=== PATIENT | male | born 1975 | race Caucasian/White ===

== ENCOUNTER 2020-06-26 19:51 | Emergency (ER) | payer OTHER ==
[2020-06-26 20:21] VITALS: BP 145/92
[2020-06-26] MEDS ORDERED: KETOROLAC TROMETHAMINE 60 MG/2 ML SDV IM ONE (21:41)
--- NOTE | 2020-06-26 21:42 | ER Document Report ---
HPI - HPI Patient complains to provider of: Low back pain Time Seen by Provider: 06/26/20 21:29 Pain Level: 3 Notes: 44-year-old male to the emergency department with complaints of low back pain that began after his dog pulled him down 2 days ago. He states that he was walking the dog when the dog lunged. He states he fell down onto his back. Denies any bladder bowel incontinence, saddle paresthesia, radiculopathy. 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 He thinks that this is aggravated it. He states he walks with a cane because he has bad knees. He denies any fevers, chills, IV drug abuse. He has taken [id number] pain medicine for it but has not helped. - ROS Systems Reviewed and Negative: No All other systems reviewed and negative - CONSTITUTIONAL Constitutional: DENIES: Fever, Chills - EENT EENT: DENIES: Sore Throat, Ear Pain, Congestion - NEURO Neurology: DENIES: Headache - CARDIOVASCULAR Cardiovascular: DENIES: Chest pain - RESPIRATORY Respiratory: DENIES: Trouble Breathing, Coughing - GASTROINTESTINAL Gastrointestinal: DENIES: Abdominal Pain, Nausea, Patient vomiting - MUSCULOSKELETAL Musculoskeletal: REPORTS: Back Pain - DERM Skin Color: Normal Skin Problems: None Past Medical History - General Information source: Patient - Social History Smoking Status: Current Every Day Smoker Frequency of alcohol use: None Drug Abuse: None Family History: Reviewed & Not Pertinent Vertical Provider Document - CONSTITUTIONAL Agree With Documented VS: Yes General Appearance: WD/WN - HEENT HEENT: Atraumatic, Normocephalic, PERRLA - NECK Neck: Normal Inspection, Supple - RESPIRATORY Respiratory: Breath Sounds Normal, No Respiratory Distress. negative: Rales, Rhonchi, Wheezing - CARDIOVASCULAR Cardiovascular: Regular Rate, Regular Rhythm, No Murmur - GI/ABDOMEN Gastrointestinal: Abdomen Soft, Abdomen Non-Tender - BACK Back: negative: CVA Tenderness-Right, CVA Tenderness-Left Notes: There is midline lumbar back pain with no step-off and no deformity. Negative straight leg raise bilaterally. No tenderness to palpation over the midline cervical, thoracic midline back. There is noted mild spasm of the bilateral lumbar paraspinal muscles. - MUSCULOSKELETAL/EXTREMETIES Musculoskeletal/Extremeties: NANCY HA - NEURO Level of Consciousness: Awake, Alert, Appropriate Motor/Sensory: No Motor Deficit, No Sensory Deficit - DERM Integumentary: Warm, Dry Course - Re-evaluation Re-evalutation: Impression: Fall, lumbar strain. X-rays are reassuring. Patient feeling better after medicines here in the emergency department. Will discharge home. Follow- up with orthopedist. Patient agrees with the plan. Encouraged to return if any worsening symptoms. - Vital Signs Vital signs: Temp Pulse Resp BP Pulse Ox 97.8 F 72 16 145/92 H 98 06/26/20 20:19 06/26/20 20:19 06/26/20 20:19 06/26/20 20:19 06/26/20 20:19 Discharge - Discharge Clinical Impression: Fall Qualifiers: Encounter type: initial encounter Qualified Code(s): W19.XXXA - Unspecified fall, initial encounter Thoracic myofascial strain Qualifiers: Encounter type: initial encounter Qualified Code(s): S29.019A - Strain of muscle and tendon of unspecified wall of thorax, initial encounter Lumbar strain Qualifiers: Encounter type: initial encounter Qualified Code(s): S39.012A - Strain of muscle, fascia and tendon of lower back, initial encounter Condition: Stable Disposition: HOME, SELF-CARE Instructions: Low Back Pain ([facility]), Muscle Strain ([facility]) Additional Instructions: Take medicines as prescribed. Your x-rays did not show any fractures. 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 Take medicines as prescribed. [facility] No lifting greater than 10 pounds for the next 5 days. Prescriptions: Cyclobenzaprine HCl [Flexeril 10 mg Tablet] 10 mg PO TID #21 tablet Lidocaine [Lidoderm 5% (700 mg) Transdermal Patch] 1 patch TP DAILY #30 adh..patch Forms: Special Work Note Referrals: JULITA HUA DO [ACTIVE STAFF] - Follow up in 1 week
--- NOTE | 2020-06-26 22:42 | RADIOLOGY REPORT (SQ) ---
EXAM DESCRIPTION: XR LUMBAR SPINE ANTEROPOSTERIOR, LATERAL, AND OBLIQUES COMPLETED DATE/TME: 06/26/2020 21:41 CLINICAL HISTORY: 44 years, Male, fall back pain COMPARISON: None. NUMBER OF VIEWS: 5 TECHNIQUE: 5 views lumbar spine LIMITATIONS: None. FINDINGS: 5 lumbar type vertebral bodies. Height and alignment is preserved. Negative for fracture/compression deformity or subluxation. Degenerative change to the sacroiliac joints bilaterally, greater on the right. Vascular calcifications. Disc spaces are grossly preserved IMPRESSION: Degenerative change of the sacroiliac joints, greater on the right. Lumbar spine is otherwise unremarkable copyright 2010 [employer]- All Rights Reserved
--- NOTE | 2020-06-26 22:44 | RADIOLOGY REPORT (SQ) ---
EXAM DESCRIPTION: XR THORACIC SPINE 2 VIEWS COMPLETED DATE/TME: 06/26/2020 21:41 CLINICAL HISTORY: 44 years, Male, fall back pain COMPARISON: None. NUMBER OF VIEWS: 2 TECHNIQUE: 2 views thoracic spine LIMITATIONS: None. FINDINGS: Vertebral body height and alignment is preserved. The disc spaces are maintained. IMPRESSION: Negative exam copyright 2011 [employer]- All Rights Reserved
== END 2020-06-26 23:45 | disposition home or self-care (01) ==
LOC: ER 19:51
DX: S29.019A Strain of muscle and tendon of unspecified wall of thorax, initial encounter (principal); M54.5 Low back pain; F17.200 Nicotine dependence, unspecified, uncomplicated; W19.XXXA Unspecified fall, initial encounter; Y93.K1 Activity, walking an animal
CPT/HCPCS: 99284; 96372; 72110; 72070; J1885